=== PATIENT | female | born 1980 | race Caucasian/White ===

== ENCOUNTER 2017-04-27 22:03 | Emergency (ER) | payer BC ==
[~2017-04-27] VITALS: Ht 162.6 cm; Wt 55.5 kg
[~2017-04-27 22:03] MED LIST: ACET-1311 PO; IBUP-1050 PO; PRENTAB26 PO
[2017-04-27 22:10] VITALS: TEMP 36.8; Ht 162.6 cm; Wt 55.5 kg
[2017-04-27] MEDS ORDERED: XYLOCAINE 1%/SOD BICARB 20 ML VIAL INFIL ONE (22:30)
[2017-04-27 23:40] VITALS: BP 100/70; PULSE 87; O2SAT 98
--- NOTE | 2017-04-27 23:54 | EMERGENCY ROOM VISIT NOTE ---
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 She does report moderate bleeding from the wound, and rates her discomfort a 4 out of 10. She has not noticed any loss of function, paresthesias or numbness of the finger. The patient is [id number]. Tetanus immunization is up-to-date. Review of Systems 6 system review was performed and was negative except for pertinent positives and negatives as indicated in history of present illness Past Medical/Surgical History Medical Problems: (1) Calculus Of Kidney (2) Irritable Bowel Syndrome (3) Missed Family History Unremarkable Social History Smoking Status: Never Smoker Alcohol Use: occasionally Marital Status: Housing Status: lives with family Occupation Status: employed Current/Historical Medications No Active Prescriptions or Reported Meds Physical Exam Vital Signs Date Time Temp Pulse Resp B/P (MAP) Pulse Ox O2 Delivery O2 Flow Rate FiO2 04/27/17 23:40 87 16 100/70 98 04/27/17 22:10 36.8 93 18 123/84 97 Room Air Physical Exam CONSTITUTIONAL: Healthy and well nourished. Alert and oriented X 3 with positive affect. HEENT: Normocephalic, atraumatic. Pupils equal, round and reactive. MUSCULOSKELETAL: Examination of the right index finger shows a 1.5 cm laceration over the volar proximal phalanx region. No active bleeding noted. The patient is able to flex the finger against resistance. Capillary refill is less than 2 seconds. INTEGUMENTARY: No rash or other significant dermatologic conditions noted. NEUROLOGIC: Right index fingertip is sensory intact. Medical Decision & Procedures Procedure Laceration repair was performed under local anesthesia after receiving verbal consent from the patient. Using buffered 1% lidocaine without epinephrine, good local anesthesia was administered. The wound was then cleansed peripherally with iodine, then pressure irrigated with normal saline. Exploration of the wound does not show any obvious involvement of the underlying joint capsule, tendons, vasculature or nerves. The wound was then approximated using 5-0 nylon simple interrupted sutures. A bacitracin dressing was applied. ED Course Patient history and physical exam were performed. Nurse's notes were reviewed. Vital signs were reviewed and were normal. The patient was provided additional verbal and written wound care instructions. Ice and elevation as needed for swelling. Ibuprofen or Tylenol as needed for pain. Suture removal in 14 days, or seek reevaluation sooner for any signs of wound infection. Patient was happy with plan of care, voiced understanding of all discharge instructions, and denied any pain at the time of discharge. Medical Decision Medication Reconcilliation Current Medication List: was personally reviewed by me Blood Pressure Screening Patient's blood pressure: Normal blood pressure Impression Primary Impression: Laceration of right index finger Departure Information Dispostion Home / Self-Care Prescriptions No Active Prescriptions or Reported Meds Forms HOME CARE DOCUMENTATION FORM, IMPORTANT VISIT INFORMATION Patient Instructions My [facility] Additional Instructions Keep wound clean and dry. Do not allow any crusting or dried blood to accumulate on sutures. If this occurs, use a 1:1 solution of hydrogen peroxide/ water on a Q-tip to clean the wound. Use an antibiotic ointment for 3-4 days, then let wound dry. Suture removal in 14 days. Return sooner for any signs of infection (increasing redness, swelling, drainage). Ice and elevate for swelling and pain. Ibuprofen 600 mg and/or Tylenol 1000 mg every 6 hrs if needed for pain. Problem Qualifiers Primary Impression: Laceration of right index finger Encounter type: initial encounter Damage to nail status: without damage Foreign body presence: without foreign body Qualified Codes: S61.210A - Laceration without foreign body of right index finger without damage to nail, initial encounter
== END 2017-04-27 23:35 | disposition home or self-care (01) ==
LOC: C.EDB 22:03 → C.EDC 23:35
DX: S61.210A Laceration without foreign body of right index finger without damage to nail, initial encounter (principal); W26.8XXA Contact with other sharp object(s), not elsewhere classified, initial encounter; Z87.442 Personal history of urinary calculi; K58.9 Irritable bowel syndrome, unspecified

== ENCOUNTER 2019-11-03 21:55 | Inpatient (IN) ==
--- OUTSIDE RECORDS SUMMARY | 2019-11-03 21:58 | External Medical Summary | Continuity of Care Document ---
:1980 Author Name Malena M.DMoises Address Unavailable Unavailable , Care Team Providers Name Role Phone Unavailable Unavailable Unavailable FONSECA, N Unavailable Unavailable Unavailable Unavailable Unavailable Problems Encounter for routine gynecological examination (V72.31) (Z0 1.419) Encounter for routine gynecological examination (V72.31) (Z0 1.419) Irregular bleeding (626.4) (N92.6) Female pelvic pain (625.9) (R10.2) Allergies and Adverse Reactions Penicillins (Allergy) Sulfa Drugs (Allergy) Medications Medications not documented Procedures History of Tonsillectomy With Adenoidectomy Status: Completed History of Dilation And Curettage Status : Completed Immunizations Immunizations not documented Family History Unknown Family Member Family history of Breast Cancer (V16.3) Status: Active Comments: Family History Grandfather Family history of Colon Cancer (V16.0) Status: Active Social History - Smoking Status Tobacco smoking consumption unknown Never smoked tobacco Plan of Treatment Planned Observations Planned Goals not documented Results No Known Results Results not documented
--- OUTSIDE RECORDS SUMMARY | 2019-11-03 21:58 | External Medical Summary | Continuity of Care Document ---
:1980 Author Name Malena M.DMoises Address Unavailable Unavailable , Care Team Providers Name Role Phone Unavailable Unavailable Unavailable FONSECA, N Unavailable Unavailable Unavailable Unavailable Unavailable Problems Encounter for routine gynecological examination (V72.31) (Z0 1.419) Female pelvic pain (625.9) (R10.2) Irregular bleeding (626.4) (N92.6) Encounter for routine gynecological examination (V72.31) (Z0 1.419) Allergies and Adverse Reactions Penicillins (Allergy) Sulfa [...]
[2019-11-03] MEDS ORDERED: ACETAMINOPHEN 325 MG TAB PO STA (22:14)
[2019-11-03] MEDS ORDERED: KETOROLAC TROMETHAMINE 15 MG/ML VIAL IV STA (22:14)
[2019-11-03] MEDS ORDERED: SODIUM CHLORIDE 0.9% 1000ML 1,000 ML IV SCH (22:15)
[2019-11-03 22:39] LABS: Basophils # (auto) 0.04 K/uL (0-0.2); Basophils % (auto) 0.9 %; Hematocrit (blood only) 38.4 % (37-47); Hemoglobin 13.1 g/dL (12.0-16.0); Immature Granulocytes # (auto) 0.01 K/uL (0.00-0.02); Immature Granulocytes % (auto) 0.2 %; Lymphocytes # (auto) 0.53 K/uL (1.2-3.4); Lymphocytes % (auto) 11.6 %; Mean Corpuscular Hemoglobin 31.7 pg (25-34); Mean Corpuscular Hgb Conc 34.1 g/dL (32-36); Mean Platelet Volume 10.2 fL (7.4-10.4); Monocytes # (auto) 0.55 K/uL (0.11-0.59); Neutrophils # (auto) 3.45 K/uL (1.4-6.5); Neutrophils % (auto) 75.3 %; Platelet Count 146 K/uL (130-400); RDW Coefficient of Variation 13.2 % (11.5-14.5); RDW Standard Deviation 45.4 fL (36.4-46.3); Red Blood Count 4.13 M/uL (4.2-5.4); White Blood Count 4.58 K/uL (4.8-10.8)
[2019-11-03 22:58] LABS: Albumin Level 3.3 gm/dl (3.4-5.0); BUN Creatinine Ratio 8.5 (10-20); Calcium 8.3 mg/dl (8.5-10.1); Creatinine Clr Calc Pharmacy 82.2 ml/min; Est GFR (African American) 114.5; Est GFR (Non-African American) 98.8; Magnesium 1.4 mg/dl (1.8-2.4)
[2019-11-03 23:00] LABS: Albumin Globulin Ratio 0.9 (0.9-2); Globulin 3.9 gm/dl (2.5-4.0); Total Protein 7.2 gm/dl (6.4-8.2)
[2019-11-03] MEDS ORDERED: MAGNESIUM SULFATE / D5W 1 GM/100 ML BAG IV STA (23:02)
[2019-11-03] MEDS ORDERED: POTASSIUM CHLORIDE / WTR 10 MEQ/100 ML PLCT IV ONE (23:02)
--- NOTE | 2019-11-03 23:03 | Emergency Department Note ---
History of Present Illness General Chief complaint: Fever Stated complaint: LOWER BACK PAIN, FEVER Time Seen by Provider: 11/03/19 22:02 History of Present Illness Maximum Pain Intensity: 8 This is a 39-year-old female that presents to the emergency department via private vehicle with complaints of "lower back pain, fever". The patient states that 1 week ago she developed dysuria and then drank cranberry juice and this seemed to subside. She states that that over the past 2 to 3 days she has had lower abdominal/suprapubic discomfort and back pain. She states that the back pain is central and not necessarily left or right-sided. She notes persistent now urinary urgency and dysuria. She denies any vaginal discharge. She is in a monogamous relationship with her . She denies any cough, nausea, vomiting, close contacts that have been ill. Overall discomfort is an 8/10. No history of meningitis or encephalitis. Home Medications Home Medications Medication Instructions Recorded Confirmed Type ibuprofen [Advil] 800 mg PO Q4 PRN 11/03/19 11/03/19 History Allergies Allergy/AdvReac Type Severity Reaction Status Date / Time Penicillins Allergy Intermediate DISCOLORED Verified 11/03/19 22:51 HIVES Sulfa (Sulfonamide Allergy Intermediate DISCOLORED Verified 11/03/19 22:51 Antibiotics) HIVES Past Med/Surg History Medical History No pertinent past medical history Surgical History No pertinent past surgical history Social History Preferred Language: [place]an Communication Ability: Effective Electronic Publications Specialist Required: No Beliefs That Will Affect Care: None Current Living Situation: Spouse and Family Other Information That Helps Us Care for You: No Feels Safe at Home: Yes Safety Concerns: Feels Safe At This Time Smoking Status: Never smoker Hx Alcohol Use: Yes Alcohol type: hard liquor Hx Substance Use: No Review of Systems A total of 10 systems reviewed and were otherwise negative Physical Exam Vital Signs Vital Signs - 24 hr 11/03/19 21:57 11/03/19 22:49 11/04/19 00:31 Temperature 39.3 C H 37 C Temperature Source Oral Oral Pulse Rate 124 H Pulse Rate [Apical] 97 H 99 H Respiratory Rate 22 18 18 Respiratory Effort / Characteristics Non-Labored Spontaneous Non-Labored Respiratory Depth Normal Normal Blood Pressure 138/84 Blood Pressure [Right Arm] 133/79 102/73 Blood Pressure Mean 102 Blood Pressure Mean [Right Arm] 97 82 Blood Pressure Position Sitting Pulse Oximetry 96 95 97 Oxygen Delivery Method Room Air Room Air Sepsis Recent Fever Within 48 Hours Yes Sepsis Action Taken by Nursing Physician Notified 11/04/19 00:49 Temperature Temperature Source Pulse Rate Pulse Rate [Apical] 102 H Respiratory Rate 18 Respiratory Effort / Characteristics Non-Labored Respiratory Depth Normal Blood Pressure Blood Pressure [Right Arm] 111/72 Blood Pressure Mean Blood Pressure Mean [Right Arm] 85 Blood Pressure Position Pulse Oximetry 97 Oxygen Delivery Method Room Air Sepsis Recent Fever Within 48 Hours Sepsis Action Taken by Nursing VITAL SIGNS - Vital signs and nursing notes were reviewed. Febrile and tachycardic on arrival. GENERAL -39-year-old female appearing her stated age who is in no acute distress. Communicates well with provider and answers questions appropriately. SKIN - Without rashes. No meningeal or petechial rash. HEAD - NC/AT. EYES - PERRL with EOMI bilaterally. Sclera anicteric. EARS - No deformities of external structures noted on gross examination bilaterally. External auditory canals without discharge or otorrhea. Tympanic membranes pearly fernandes without retraction or bulging. No fluid or purulent material visualized behind the TM. Handle of malleus, umbo, cone of light, pars tensa/flaccid all easily visualized. NOSE - Midline and without cyanosis. No epistaxis or purulent drainage noted. Septum midline without deviation or septal hematoma noted. MOUTH/OROPHARYNX - Without perioral cyanosis. Buccal mucosa pink and moist and without leukoplakia. Tongue midline with equal elevation of palate bilaterally. No tonsillar hypertrophy, erythema, or exudates noted. Good dentition noted. NECK - Neck with FROM. Supple to palpation. No lymphadenopathy noted. No nuchal rigidity. No meningismus. LUNGS - Chest wall symmetric without accessory muscle use, intercostals retractions, or central cyanosis. Normal vesicular breath sounds CTA B/L. No wheezes, rales, or rhonchi appreciated. CARDIAC - RRR with S1/S2. No murmur, rubs, or gallops appreciated. ABDOMEN - Abdominal contour normal without pulsations or visible masses. BS normoactive all four quadrants. Generalized lower abdominal tenderness palpation. No palpable masses, hepatosplenomegaly, or ascites noted. EXTREMITIES - No clubbing or peripheral cyanosis. No pretibial edema present. +5/5 strength noted in UE/LE bilaterally. NEUROLOGIC - Cranial nerves II through XII grossly intact. Sensory intact to light touch throughout. PSYCH - A&Ox3 and cooperates fully with examiner. Pt is very pleasant and interacts well with examiner. Course Administered Medications Doxycycline Hyclate 100 mg/ (Dextrose) 110 mls @ 50 mls/hr IV Q12H [facility] Stop: 11/14/19 02:39 Last Admin: 11/04/19 04:31 Dose: 50 mls/hr Documented by: [id number] Ceftriaxone Sodium 2,000 mg/ (Dextrose) 50 mls @ 100 mls/hr IV Q24H [facility]; Protocol Stop: 11/14/19 02:44 Last Infusion: 11/04/19 05:04 Dose: 0 mls/hr Documented by: [id number] Admin: 11/04/19 04:31 Dose: 100 mls/hr Documented by: [id number] Sodium Chloride (Nss 1000ml) 1,000 mls @ 125 mls/hr IV .Q8H [facility] Stop: 12/04/19 02:44 Last Admin: 11/04/19 04:31 Dose: 125 mls/hr Documented by: [id number] Discontinued Medications Acetaminophen (Tylenol) 650 mg PO NOW STA Stop: 11/03/19 22:15 Last Admin: 11/03/19 22:51 Dose: 650 mg Documented by: [id number] Sodium Chloride (Nss 1000ml) 1,000 mls @ 999 mls/hr IV .Q1H1M [facility] Stop: 11/03/19 23:15 Last Infusion: 11/04/19 01:00 Dose: 0 mls/hr Documented by: [id number] Admin: 11/03/19 22:35 Dose: 999 mls/hr Documented by: [id number] Potassium Chloride (K Herbert / Wtr) 10 meq in 100 mls @ 100 mls/hr IV ONE ONE Stop: 11/04/19 00:01 Last Infusion: 11/04/19 01:28 Dose: 0 mls/hr Documented by: [id number] Admin: 11/04/19 00:25 Dose: 100 mls/hr Documented by: [id number] Magnesium Sulfate/Dextrose (Magnesium Sulfate / D5w) 1 gm in 100 mls @ 100 mls/hr IV NOW STA Stop: 11/04/19 00:01 Last Infusion: 11/04/19 01:00 Dose: 0 mls/hr Documented by: [id number] Admin: 11/03/19 23:12 Dose: 100 mls/hr Documented by: [id number] Magnesium Sulfate/Dextrose (Magnesium Sulfate / D5w) 1 gm in 100 mls @ 50 mls/hr IV ONE ONE Stop: 11/04/19 04:36 Last Infusion: 11/04/19 04:41 Dose: 0 mls/hr Documented by: [id number] Admin: 11/04/19 02:49 Dose: 50 mls/hr Documented by: [id number] Ioversol (Optiray 320 100ml) 94 ml IV ONCE PRN PRN Reason: Interaction Checking Stop: 11/07/19 23:11 Last Admin: 11/03/19 23:13 Dose: 1 ml Documented by: [id number] Ketorolac Tromethamine (Toradol) 15 mg IV NOW STA Stop: 11/03/19 22:15 Last Admin: 11/03/19 22:51 Dose: 15 mg Documented by: [id number] Potassium Chloride (Nancy Ciel Elix) 60 meq PO NOW STA Stop: 11/04/19 02:38 Last Admin: 11/04/19 02:49 Dose: 60 meq Documented by: [id number] Medical Decision Making Laboratory Data Result diagrams: 11/03/19 22:29 11/03/19 22:29 Lab Results 11/03/19 11/03/19 11/03/19 Range/Units 22:29 22:29 22:29 WBC 4.58 L (4.8-10.8) K/uL RBC 4.13 L (4.2-5.4) M/uL Hgb 13.1 (12.0-16.0) g/dL Hct 38.4 (37-47) % MCV 93.0 (80-100) fL MCH 31.7 (25-34) pg MCHC 34.1 (32-36) g/dL RDW Std Deviation 45.4 (36.4-46.3) fL RDW Coeff of Octavia 13.2 (11.5-14.5) % Plt Count 146 (130-400) K/uL MPV 10.2 (7.4-10.4) fL Immature Gran % (Auto) 0.2 % Neut % (Auto) 75.3 % Lymph % (Auto) 11.6 % Edgar % (Auto) 12.0 % Eos % (Auto) 0.0 % Baso % (Auto) 0.9 % Immature Gran # (Auto) 0.01 (0.00-0.02) K/uL Neut # (Auto) 3.45 (1.4-6.5) K/uL Lymph # (Auto) 0.53 L (1.2-3.4) K/uL Edgar # (Auto) 0.55 (0.11-0.59) K/uL Eos # (Auto) 0.00 (0-0.5) K/uL Baso # (Auto) 0.04 (0-0.2) K/uL Absolute Nucleated RBC 0.00 (0-0) K/uL Nucleated RBC % (auto) 0.0 % Sodium 133 L (136-145) mmol/L Potassium 3.0 L (3.5-5.1) mmol/L Chloride 101 (98-107) mmol/L Carbon Dioxide 23 (21-32) mmol/L Anion Gap 9.0 (3-11) BUN 7 (7-18) mg/dl Creatinine 0.76 (0.6-1.2) mg/dl Est Cr Clr Drug Dosing 82.2 ml/min Est GFR ( Amer) 114.5 Est GFR (Non-Af Amer) 98.8 BUN/Creatinine Ratio 8.5 L (10-20) Glucose 116 H (70-99) mg/dl Lactate 0.9 (0.4-2.0) mmol/L Calcium 8.3 L (8.5-10.1) mg/dl Magnesium 1.4 L (1.8-2.4) mg/dl Total Bilirubin 1.0 (0.2-1) mg/dl AST 98 H (15-37) U/L ALT 53 (12-78) U/L Alkaline Phosphatase 106 (45-117) U/L Total Protein 7.2 (6.4-8.2) gm/dl Albumin 3.3 L (3.4-5.0) gm/dl Globulin 3.9 (2.5-4.0) gm/dl Albumin/Globulin Ratio 0.9 (0.9-2) Urine Color Urine Appearance (Clear) Urine pH (4.5-7.5) Ur Specific [place] (1.000-1.030) Urine Protein (Negative) Urine Glucose (UA) (Negative) Urine Ketones (Negative) Urine Blood (Negative) Urine Nitrite (Negative) Urine Bilirubin (Negative) Urine Urobilinogen (Negative) Ur Leukocyte Esterase (Negative) Urine WBC (Auto) (0-5) /hpf Urine RBC (Auto) (0-4) /hpf U Hyaline Cast (Auto) (0-5) /lpf U Epithel Cells (Auto) (0-5) /lpf Urine Bacteria (Auto) (Negative) POC Ur Test (NEG) Adenovirus (PCR) (NotDetected) Anaplasma Smear See Comment B. pertussis DNA (PCR) (NotDetected) B.parapertussis DNA PCR (NotDetected) Lyme Disease IgG Ab (Negative) Lyme Disease IgM Ab (Negative) C. pneumoniae DNA (PCR) (NotDetected) Coronavirus OC43 (PCR) (NotDetected) Coronavirus HKU1 (PCR) (NotDetected) Coronavirus 229E (PCR) (NotDetected) COVID-19 PCR (Negative) Coronavirus NL63 (PCR) (NotDetected) Human Metapneumovir PCR (NotDetected) Influenza Type A (PCR) (NotDetected) Influenza Type B (PCR) (NotDetected) M. pneumoniae (PCR) (NotDetected) Parainfluenza 1 (PCR) (NotDetected) Parainfluenza 2 (PCR) (NotDetected) Parainfluenza 3 (PCR) (NotDetected) Parainfluenza 4 (PCR) (NotDetected) RSV (PCR) (NotDetected) Entero/Rhino (PCR) (NotDetected) 11/03/19 11/03/19 11/03/19 Range/Units 22:29 23:41 23:41 WBC (4.8-10.8) K/uL RBC (4.2-5.4) M/uL Hgb (12.0-16.0) g/dL Hct (37-47) % MCV (80-100) fL MCH (25-34) pg MCHC (32-36) g/dL RDW Std Deviation (36.4-46.3) fL RDW Coeff of Octavia (11.5-14.5) % Plt Count (130-400) K/uL MPV (7.4-10.4) fL Immature Gran % (Auto) % Neut % (Auto) % Lymph % (Auto) % Edgar % (Auto) % Eos % (Auto) % Baso % (Auto) % Immature Gran # (Auto) (0.00-0.02) K/uL Neut # (Auto) (1.4-6.5) K/uL Lymph # (Auto) (1.2-3.4) K/uL Edgar # (Auto) (0.11-0.59) K/uL Eos # (Auto) (0-0.5) K/uL Baso # (Auto) (0-0.2) K/uL Absolute Nucleated RBC (0-0) K/uL Nucleated RBC % (auto) % Sodium (136-145) mmol/L Potassium (3.5-5.1) mmol/L Chloride (98-107) mmol/L Carbon Dioxide (21-32) mmol/L Anion Gap (3-11) BUN (7-18) mg/dl Creatinine (0.6-1.2) mg/dl Est Cr Clr Drug Dosing ml/min Est GFR ( Amer) Est GFR (Non-Af Amer) BUN/Creatinine Ratio (10-20) Glucose (70-99) mg/dl Lactate (0.4-2.0) mmol/L Calcium (8.5-10.1) mg/dl Magnesium (1.8-2.4) mg/dl Total Bilirubin (0.2-1) mg/dl AST (15-37) U/L ALT (12-78) U/L Alkaline Phosphatase (45-117) U/L Total Protein (6.4-8.2) gm/dl Albumin (3.4-5.0) gm/dl Globulin (2.5-4.0) gm/dl Albumin/Globulin Ratio (0.9-2) Urine Color Yellow Urine Appearance Clear (Clear) Urine pH 6.0 (4.5-7.5) Ur Specific [place] 1.023 (1.000-1.030) Urine Protein Negative (Negative) Urine Glucose (UA) Negative (Negative) Urine Ketones 1+ H (Negative) Urine Blood 1+ H (Negative) Urine Nitrite Negative (Negative) Urine Bilirubin Negative (Negative) Urine Urobilinogen Negative (Negative) Ur Leukocyte Esterase Negative (Negative) Urine WBC (Auto) 1-5 (0-5) /hpf Urine RBC (Auto) 0-4 (0-4) /hpf U Hyaline Cast (Auto) 1-5 (0-5) /lpf U Epithel Cells (Auto) >30 H (0-5) /lpf Urine Bacteria (Auto) Negative (Negative) POC Ur Test NEG (NEG) Adenovirus (PCR) (NotDetected) Anaplasma Smear B. pertussis DNA (PCR) (NotDetected) B.parapertussis DNA PCR (NotDetected) Lyme Disease IgG Ab Negative (Negative) Lyme Disease IgM Ab Negative (Negative) C. pneumoniae DNA (PCR) (NotDetected) Coronavirus OC43 (PCR) (NotDetected) Coronavirus HKU1 (PCR) (NotDetected) Coronavirus 229E (PCR) (NotDetected) COVID-19 PCR (Negative) Coronavirus NL63 (PCR) (NotDetected) Human Metapneumovir PCR (NotDetected) Influenza Type A (PCR) (NotDetected) Influenza Type B (PCR) (NotDetected) M. pneumoniae (PCR) (NotDetected) Parainfluenza 1 (PCR) (NotDetected) Parainfluenza 2 (PCR) (NotDetected) Parainfluenza 3 (PCR) (NotDetected) Parainfluenza 4 (PCR) (NotDetected) RSV (PCR) (NotDetected) Entero/Rhino (PCR) (NotDetected) 11/04/19 11/04/19 Range/Units 01:40 01:40 WBC (4.8-10.8) K/uL RBC (4.2-5.4) M/uL Hgb (12.0-16.0) g/dL Hct (37-47) % MCV (80-100) fL MCH (25-34) pg MCHC (32-36) g/dL RDW Std Deviation (36.4-46.3) fL RDW Coeff of Octavia (11.5-14.5) % Plt Count (130-400) K/uL MPV (7.4-10.4) fL Immature Gran % (Auto) % Neut % (Auto) % Lymph % (Auto) % Edgar % (Auto) % Eos % (Auto) % Baso % (Auto) % Immature Gran # (Auto) (0.00-0.02) K/uL Neut # (Auto) (1.4-6.5) K/uL Lymph # (Auto) (1.2-3.4) K/uL Edgar # (Auto) (0.11-0.59) K/uL Eos # (Auto) (0-0.5) K/uL Baso # (Auto) (0-0.2) K/uL Absolute Nucleated RBC (0-0) K/uL Nucleated RBC % (auto) % Sodium (136-145) mmol/L Potassium (3.5-5.1) mmol/L Chloride (98-107) mmol/L Carbon Dioxide (21-32) mmol/L Anion Gap (3-11) BUN (7-18) mg/dl Creatinine (0.6-1.2) mg/dl Est Cr Clr Drug Dosing ml/min Est GFR ( Amer) Est GFR (Non-Af Amer) BUN/Creatinine Ratio (10-20) Glucose (70-99) mg/dl Lactate (0.4-2.0) mmol/L Calcium (8.5-10.1) mg/dl Magnesium (1.8-2.4) mg/dl Total Bilirubin (0.2-1) mg/dl AST (15-37) U/L ALT (12-78) U/L Alkaline Phosphatase (45-117) U/L Total Protein (6.4-8.2) gm/dl Albumin (3.4-5.0) gm/dl Globulin (2.5-4.0) gm/dl Albumin/Globulin Ratio (0.9-2) Urine Color Urine Appearance (Clear) Urine pH (4.5-7.5) Ur Specific [place] (1.000-1.030) Urine Protein (Negative) Urine Glucose (UA) (Negative) Urine Ketones (Negative) Urine Blood (Negative) Urine Nitrite (Negative) Urine Bilirubin (Negative) Urine Urobilinogen (Negative) Ur Leukocyte Esterase (Negative) Urine WBC (Auto) (0-5) /hpf Urine RBC (Auto) (0-4) /hpf U Hyaline Cast (Auto) (0-5) /lpf U Epithel Cells (Auto) (0-5) /lpf Urine Bacteria (Auto) (Negative) POC Ur Test (NEG) Adenovirus (PCR) Not Detected (NotDetected) Anaplasma Smear B. pertussis DNA (PCR) Not Detected (NotDetected) B.parapertussis DNA PCR Not Detected (NotDetected) Lyme Disease IgG Ab (Negative) Lyme Disease IgM Ab (Negative) C. pneumoniae DNA (PCR) Not Detected (NotDetected) Coronavirus OC43 (PCR) Not Detected (NotDetected) Coronavirus HKU1 (PCR) Not Detected (NotDetected) Coronavirus 229E (PCR) Not Detected (NotDetected) COVID-19 PCR NEGATIVE (Negative) Coronavirus NL63 (PCR) Not Detected (NotDetected) Human Metapneumovir PCR Not Detected (NotDetected) Influenza Type A (PCR) Not Detected (NotDetected) Influenza Type B (PCR) Not Detected (NotDetected) M. pneumoniae (PCR) Not Detected (NotDetected) Parainfluenza 1 (PCR) Not Detected (NotDetected) Parainfluenza 2 (PCR) Not Detected (NotDetected) Parainfluenza 3 (PCR) Not Detected (NotDetected) Parainfluenza 4 (PCR) Not Detected (NotDetected) RSV (PCR) Not Detected (NotDetected) Entero/Rhino (PCR) Not Detected (NotDetected) Imaging Data My Impression: Chest x-ray: No acute process. Radiologist's Impression: CT ABDOMEN & PELVIS With Contrast: Direct comparison made to a prior study of March 31, 2014. The liver, spleen, pancreas and gallbladder appear normal. Stomach, small bowel, colon appeared normal. Kidneys ureters and bladder appear normal. Uterus appears normal. Vascular structures appear normal. Impression: No acute findings Radiologist: Alex Schuster MD Study ready at 00:07 and initial results transmitted at 00:25 MDM Narrative Patient was seen and evaluated as above in room C6. Review was performed of nursing notes and vital signs. After obtaining a thorough history and physical examination the above work up was performed. She presents to us today with dy suria, urinary hesitancy, lower abdominal pain, back pain and now fever. She is tachycardic and febrile on examination and therefore work-up was focused around this. There is mild decrease in white blood cell count and red blood cell count. Mild decrease in potassium as well as magnesium. These were intravenously repeated. AST elevated at 98. Urinalysis does not suggest infection. CT scan was obtained of the abdomen and pelvis and was negative. Patient was medicated here with fluids, magnesium, potassium, Tylenol as well as Toradol. With the patient's fever of unknown origin I do believe that further evaluation and management in the inpatient setting is warranted given her tachycardic and febrile state on arrival. COVID as well as bio fire were ordered and were negative. Patient does not have any nuchal rigidity on examination. Do not believe that LP risk outweighs benefit at this time. Benefit versus risk of LP discussed and through shared decision making will refrain. Case discussed with the hospitalist. Please refer to further documentation regarding her stay. Patient amenable to staying. Case was discussed with the attending physician. An order was placed for continuous cardiac monitoring. The monitor shows a rate of 101 with sinus tachycardic rhythm. I attest that I have personally reviewed the patient medication list. GCS: 15 In the evaluation and treatment of this patient the following differential diagnoses were entertained: Anaplasmosis, Lyme disease, meningitis, encephalitis, COVID, pneumonia, pyelonephritis, pyelitis, renal abscess, UTI, PI D, appendicitis, among others Impression & Plan Fever of unknown origin, Hypomagnesemia, Hypokalemia Discharge Plan Visit Data *Final* Discharge Date/Time: 11/04/19 03:41 Chief Complaint: Fever Stated Complaint: LOWER BACK PAIN, FEVER ED Provider: Toby Guzman ED Midlevel Provider: Sharan Duran Discharge Problem: Fever of unknown origin, Hypomagnesemia, Hypokalemia Patient Disposition: Admitted As Inpatient Condition: Good Discharge Instructions Interventions: ED Discharge Assessment Last Done: 11/04/19 03:41
[2019-11-03] MEDS ORDERED: IOVERSOL 100ml IV PRN (23:12)
[2019-11-03 23:50] LABS: Appearance Urine Clear (Clear); Bacteria Urine Automated Negative (Negative); Bilirubin Urine Negative (Negative); Blood Urine 1+ (Negative); Color Urine Yellow; Epithelial Cell Urine Auto >30 /lpf (0-5); Glucose Urine UA Negative (Negative); Ketones Urine 1+ (Negative); Leukocyte Esterase Urine Negative (Negative); Nitrite Urine Negative (Negative); Protein Urine Negative (Negative); RBC Urine Automated 0-4 /hpf (0-4); Specific Gravity Urine 1.023 (1.000-1.030); Urobilinogen Urine Negative (Negative)
[2019-11-04] MEDS ORDERED: MAGNESIUM SULFATE / D5W 1 GM/100 ML BAG IV ONE (02:37)
[2019-11-04] MEDS ORDERED: POTASSIUM CHLORIDE 20 MEQ/15 ML UDC PO STA (02:37)
[2019-11-04] MEDS ORDERED: cefTRIAXone SODIUM 2,000 MG in DEXTROSE 5% 50 ML IV SCH (02:45)
[2019-11-04] MEDS ORDERED: SODIUM CHLORIDE 0.9% 1000ML 1,000 ML IV SCH (02:45)
[2019-11-04 02:57] LABS: Adenovirus PCR Not Detected (NotDetected); Bordetella parapertussis PCR Not Detected (NotDetected); Bordetella pertussis PCR Not Detected (NotDetected); Chlamydia pneumoniae PCR Not Detected (NotDetected); Coronavirus 229E PCR Not Detected (NotDetected); Coronavirus HKU1 PCR Not Detected (NotDetected); Coronavirus NL63 PCR Not Detected (NotDetected); Coronavirus OC43PCR Not Detected (NotDetected); Human Metapneumovirus PCR Not Detected (NotDetected); Influenza A PCR Not Detected (NotDetected); Influenza B PCR Not Detected (NotDetected); Mycoplasma pneumoniae PCR Not Detected (NotDetected); Parainfluenza Virus 1 PCR Not Detected (NotDetected); Parainfluenza Virus 2 PCR Not Detected (NotDetected); Parainfluenza Virus 3 PCR Not Detected (NotDetected); Parainfluenza Virus 4 PCR Not Detected (NotDetected); Respiratory Syncytial VirusPCR Not Detected (NotDetected); Rhinovirus/Enterovirus PCR Not Detected (NotDetected)
[2019-11-04 03:34] LABS: Lyme Ab IgG w/WB Rflx Negative (Negative); Lyme Ab IgM w/WB Rflx Negative (Negative)
[2019-11-04] MEDS ORDERED: NITROGLYCERIN SL 0.4 MG/TAB TAB SL PRN (04:09)
--- NOTE | 2019-11-04 04:22 | History and Physical Report ---
DATE OF ADMISSION: 11/04/2019 CHIEF COMPLAINT: Fever and back pain. HISTORY OF PRESENT ILLNESS: A 39-year-old female with no significant past medical history, who had some varicella infection long time back, who presents with fever and low back pain that started last 4 days ago, on and off, and last 24 hours she is taking ibuprofen every 4-6 hours, the fever is not coming down, and has significant pain in the lower back radiating to the groins and she has also had some burning micturition since last few days. Initially thought it could be from UTI. There is some blood in the urine, but she is also menstruating. Temperature was 104F today, she called her family doctor and advised to come to the ER for possible sepsis. There was question of pyelonephritis, but CT scan of the abdomen and pelvis unremarkable. UA was also unremarkable. Has slight leukopenia of 4.5, potassium was 3, and magnesium was 1.4. Lactate was 0.9. Rest of the labs were unremarkable. Chest x-ray was unremarkable. The patient does not have any cough, no shortness of breath, no chest pain, no loss of sense of smell or taste. Having poor appetite. Denies any diarrhea or constipation, no blood in the stools. Has headaches. No blurred visions, no earache, no runny nose, no sore throat, no dysphagia. No rash anywhere. The patient has no obvious exposure to COVID patients. The patient traveled out of the state on 10[place]07[place]2019 to drop off her son for his recruitment internship. They camped for a couple of times, last one was last weekend and prior to that a couple of weeks ago. The patient says she was not exposed to any public during the camping. Did not notice any tick bites, but says her dog has some ticks. Because of COVID pandemic, COVID PCR was ordered, which is pending. Influenza is ordered, which is pending and also biofire results are ordered. We will also order Lyme screen and anaplasmosis tests. When she came in, the patient was having temperature 39.3 and she was tachycardic. With the fluids and Tylenol and Toradol, fever has come down, tachycardia improved. Currently resting comfortably and hemodynamically stable. ALLERGIES: PENICILLIN, SULFA ANTIBIOTICS. PAST MEDICAL HISTORY: As mentioned above. PAST SURGICAL HISTORY: Colonoscopy, eardrum opening x2, arm surgery, Pap screen, tonsillectomy, adenoidectomy. MEDICATIONS: None. FAMILY HISTORY: Significant for father has asthma, uveitis, endocrine disorder, heart disorder, hypertension; mother has thyroid disorder, hypertension, diabetes; aunt has breast cancer. SOCIAL HISTORY: . No smoking. Alcohol occasional. No drug use. REVIEW OF SYSTEMS: As per HPI. Rest of the review of systems negative. PHYSICAL EXAMINATION: GENERAL: The patient is of moderate build, not in acute distress. VITAL SIGNS: T-max 39.3, pulse currently 102, blood pressure 111/72, respiratory rate 18, oxygen 97% on room air. HEENT: No pallor, no icterus. Pupils equal, round, and reactive to light. NECK: No neck masses seen, supple. CARDIOVASCULAR: S1, S2 heard, regular rate and rhythm, no murmur, no gallop. RESPIRATORY SYSTEM: Normal AP diameter. No accessory muscle use. No wheezing, no crackles. ABDOMEN: Soft, bowel sounds present. Mild lower abdominal discomfort. No guarding, no rigidity, no distention. CENTRAL NERVOUS SYSTEM: Cranial nerves II-XII grossly intact. Nonfocal. EXTREMITIES: No edema, no erythema. LABORATORY DATA: WBC 4.5, hemoglobin 13.1, hematocrit 38.4, platelets 146. Sodium 133, potassium 3, chloride 101, bicarbonate 23, BUN 7, creatinine 0.7, serum glucose 116, lactate 0.9, calcium 8.3, magnesium 1.4, total bilirubin 1, AST 98, ALT 53, alkaline phosphatase 106. Urinalysis, +1 ketones, +1 blood. IMAGING DATA: Chest x-ray, no acute findings. CT of abdomen and pelvis, preliminary report, no acute findings. ASSESSMENT AND PLAN: This is a 39-year-old female who presents with back pain and fever going on for last 4 days. 1. Fever and back pain. Meets criteria for early sepsis with fever, tachycardia, leukopenia. Currently, source is unclear. The patient traveled on 10/07/2019 to out of the [facility] and also recently had camping, but there was no close exposure to public, but because of ongoing pandemic we will check for COVID testing and other viral causes.At camping could also be exposed to some tick bites, though the patient did not notice any, but she says she noticed some ticks on the dog, so we will empirically start for tick-borne illnesses with IV doxycycline and IV Rocephin. Follow those results. Currently hemodynamically stable. Continue with intravenous fluids 125 mL per hour normal saline, Tylenol p.r.n. Monitor in the med/surg tele. 2. Electrolyte abnormalities with hypokalemia and hypomagnesemia. We will replace. Follow the repeat labs. 3. Deep venous thrombosis prophylaxis, sequential compression devices. DISPOSITION: Admit to med/surg tele. Level 1 full code. MTDD
[2019-11-04] MEDS: DOXYCYCLINE HYCLATE 100 MG in DEXTROSE 5% 100 ML IV SCH ×2 (04:31→14:23)
[2019-11-04] MEDS: ACETAMINOPHEN 325 MG TAB PO PRN ×3 (06:46→20:08)
[2019-11-04 07:10] LABS: Basophils # (auto) 0.02 K/uL (0-0.2); Basophils % (auto) 0.4 %; Eosinophils # (auto) 0.01 K/uL (0-0.5); Eosinophils % (auto) 0.2 %; Hematocrit (blood only) 34.8 % (37-47); Hemoglobin 12.1 g/dL (12.0-16.0); Lymphocytes # (auto) 0.74 K/uL (1.2-3.4); Lymphocytes % (auto) 16.1 %; Mean Corpuscular Hemoglobin 32.2 pg (25-34); Mean Corpuscular Hgb Conc 34.8 g/dL (32-36); Mean Corpuscular Volume 92.6 fL (80-100); Mean Platelet Volume 10.2 fL (7.4-10.4); Monocytes # (auto) 0.68 K/uL (0.11-0.59); Monocytes % (auto) 14.8 %; Neutrophils # (auto) 3.15 K/uL (1.4-6.5); Neutrophils % (auto) 68.5 %; Platelet Count 124 K/uL (130-400); RDW Coefficient of Variation 13.6 % (11.5-14.5); RDW Standard Deviation 45.6 fL (36.4-46.3); Red Blood Count 3.76 M/uL (4.2-5.4)
--- NOTE | 2019-11-04 07:19 | XRay Report ---
XR chest 1V portable CLINICAL HISTORY: fever COMPARISON STUDY: No previous studies for comparison. FINDINGS: The cardiac and mediastinal contours are normal. There is no evidence of focal pulmonary co nsolidation. There is no evidence of failure. No pleural effusions are visualized.[ IMPRESSION: No active disease in the chest. ACT 112: Negative or not required by law. Electronically signed by: Hilario Montejo M.D. 11/04/2019 7:17 AM
[2019-11-04 07:22] LABS: Partial Thromboplastin Ratio 1.1; Partial Thromboplastin Time 30.1 Seconds (21.0-31.0)
--- NOTE | 2019-11-04 07:30 | CT Scan Report ---
CT abd pelvis IV con only CLINICAL HISTORY: Fever, dysuria, abd/back pain COMPARISON STUDY: March 2014 TECHNIQUE: Patient was scanned in a dynamic helical fashion during intravenous administration of 94 c c of Optiray 320. A dose lowering technique was utilized adhering to the principles of ALARA. CT DOSE: 275.96 mGy.cm FINDINGS: Lower chest: The heart is normal in size and configuration, without pericardial effusion. The lung ba ses and pleural spaces are clear. Liver: The contrast-enhanced liver is normal in size, contour, and attenuation. There is no intrahepa tic biliary ductal dilatation. The hepatic veins and portal veins are patent. Gallbladder: Contracted Spleen: Spleen is borderline enlarged measuring 12.5 cm Pancreas: Unremarkable. Adrenal glands: Unremarkable. Kidneys: There is no hydronephrosis. There are clustered upper pole left renal calculi likely within a calyceal diverticulum. Proximally 6 calculi are visualized measuring 12 mm in aggregate. There is a 5 mm right renal cyst Bowel: There are no transition zones to indicate bowel obstruction. There is no evidence of acute div erticulitis. The appendix is not visualized with certainty. There are no findings to indicate acute a ppendicitis Peritoneum: There is no intraperitoneal free air or abdominal ascites. Vasculature: The abdominal aorta is normal in course and caliber. Adenopathy: None. Pelvic viscera: The bladder, and pelvic viscera are unremarkable. Skeletal structures: No destructive osseous lesions are seen. IMPRESSION: 1. No acute abdominal or pelvic findings 2. No evidence of bowel obstruction. No evidence of free air 3. Diverticulosis. No evidence of acute diverticulitis 4. Nonvisualization the appendix but no evidence of acute appendicitis 5. Left renal calculi in a presumed calyceal diverticulum ACT 112: Negative or not required by law. Electronically signed by: Hilario Montejo M.D. 11/04/2019 7:29 AM
[2019-11-04 07:36] LABS: Dohle Bodies 1+
[2019-11-04 07:46] LABS: BUN Creatinine Ratio 5.5 (10-20); Calcium 7.3 mg/dl (8.5-10.1); Creatinine Clr Calc Pharmacy 96.1 ml/min; Est GFR (African American) 129.6; Est GFR (Non-African American) 111.8; Magnesium 2.3 mg/dl (1.8-2.4); Potassium 3.5 mmol/L (3.5-5.1)
[2019-11-04] MEDS: POTASSIUM PHOSPHATE IV SCH ×2 (08:57→20:09)
[2019-11-04] MEDS: [UNRECOGNIZED DRUG - OTHER] IV SCH ×2 (08:57→20:09)
[2019-11-04] MEDS: D5W IV SCH ×2 (08:57→20:09)
[2019-11-04] MEDS ORDERED: KETOROLAC TROMETHAMINE 15 MG/ML VIAL IV ONE (09:01)
[2019-11-04] MEDS ORDERED: KETOROLAC 30 MG/ML VIAL IV PRN (14:06)
[2019-11-04] MEDS: TRAMADOL HCL 50 MG TABLET PO PRN ×2 (14:23→20:08)
[2019-11-04] MEDS: IBUPROFEN 200 MG TAB PO PRN (17:09)
[2019-11-04] MEDS: ONDANSETRON INJ 2 MG/ML 2 ML VIAL IV PRN (17:56)
--- NOTE | 2019-11-04 18:39 | Communication Note ---
Date of Service: November 04, 2019 Admitted early this morning with febrile illness. Rechecked this afternoon. Persistent frontal headache. No photophobia. No nuchal rigidity. Persistent nausea. Possible tick-borne illness. Lyme screen negative. Anaplasmosis PCR pending. Continue doxycycline.
[2019-11-04] MEDS ORDERED: PROMETHAZINE HCL 12.5 MG in SODIUM CHLORIDE 0.9% 50 ML IV STA (20:43)
[2019-11-05] MEDS: DOXYCYCLINE HYCLATE 100 MG in DEXTROSE 5% 100 ML IV SCH ×2 (04:11→14:13)
[2019-11-05 07:25] LABS: Basophils # (auto) 0.02 K/uL (0-0.2); Basophils % (auto) 0.6 %; Eosinophils # (auto) 0.05 K/uL (0-0.5); Eosinophils % (auto) 1.5 %; Hematocrit (blood only) 35.3 % (37-47); Hemoglobin 11.5 g/dL (12.0-16.0); Immature Granulocytes # (auto) 0.01 K/uL (0.00-0.02); Immature Granulocytes % (auto) 0.3 %; Lymphocytes # (auto) 0.98 K/uL (1.2-3.4); Lymphocytes % (auto) 28.6 %; Mean Corpuscular Hemoglobin 30.8 pg (25-34); Mean Corpuscular Hgb Conc 32.6 g/dL (32-36); Mean Corpuscular Volume 94.6 fL (80-100); Mean Platelet Volume 10.8 fL (7.4-10.4); Monocytes # (auto) 0.44 K/uL (0.11-0.59); Monocytes % (auto) 12.8 %; Neutrophils # (auto) 1.93 K/uL (1.4-6.5); Neutrophils % (auto) 56.2 %; Platelet Count 131 K/uL (130-400); RDW Coefficient of Variation 13.8 % (11.5-14.5); RDW Standard Deviation 47.7 fL (36.4-46.3); Red Blood Count 3.73 M/uL (4.2-5.4); White Blood Count 3.43 K/uL (4.8-10.8)
[2019-11-05] MEDS: D5W IV SCH (07:47)
[2019-11-05] MEDS: ONDANSETRON INJ 2 MG/ML 2 ML VIAL IV PRN (07:47)
[2019-11-05] MEDS: POTASSIUM PHOSPHATE IV SCH (07:47)
[2019-11-05] MEDS: [UNRECOGNIZED DRUG - OTHER] IV SCH (07:47)
[2019-11-05] MEDS: IBUPROFEN 200 MG TAB PO PRN (07:52)
[2019-11-05 08:01] LABS: Albumin Level 2.5 gm/dl (3.4-5.0); BUN Creatinine Ratio 7.6 (10-20); Bilirubin Direct 0.2 mg/dl (0-0.2); Calcium 7.8 mg/dl (8.5-10.1); Creatinine Clr Calc Pharmacy 109.6 ml/min; Est GFR (African American) 135.3; Est GFR (Non-African American) 116.8; Magnesium 2.1 mg/dl (1.8-2.4); Potassium 3.6 mmol/L (3.5-5.1)
[2019-11-05 08:05] LABS: Albumin Globulin Ratio 0.8 (0.9-2); Bilirubin,Total 0.6 mg/dl (0.2-1); Globulin 3.3 gm/dl (2.5-4.0); Total Protein 5.8 gm/dl (6.4-8.2)
--- NOTE | 2019-11-05 14:32 | Hospitalist Progress Note ---
Date of Service November 05, 2019 Assessment & Plan (1) Febrile illness: Presented with febrile illness. No sick contacts. Recent camping traveling from [place] to [place]. No known tick bites, but dog had ticks. CBC showed leukopenia. Transaminases were elevated. CT showed borderline splenomegaly. Lyme screen negative. Resp BioFire panel negative. Anaplasmosis PCR ordered and pending. Received doxycycline with improvement. Discharge on doxycycline to complete 10 day course of therapy. Recheck CBC with diff and LFT's in clinic. (2) Hypokalemia: K 3.0. Received replacement. Recheck in clinic. (3) Hypomagnesemia: Mg 1.4. Received replacement. Recheck in clinic. (4) Hypophosphatemia: Phos 1.0. Received replacement. Recheck in clinic. (5) Abnormal liver function tests: 11/03/19 11/05/19 22:29 06:56 Total Bilirubin 1.0 0.6 AST 98 H 191 H ALT 53 106 H Alkaline Phosphatase 106 79 Abnormal LFT's could be secondary to anaplasmosis (not yet confirmed). No hepatobiliary abnormalities on CT. Recheck in clinic. Further evaluation as necessary if LFT elevations worsen. (6) DVT prophylaxis: SCD's ordered. (7) Discharge planning issues: Discharge to home. Internal Medicine follow-up with Dr. Marley Antunez. Admission and Anticipated Discharge Date Admission Date: November 04, 2019 Subjective Feels much better. Temp down. Headache better. Nausea improved; ate some breakfast and lunch. Ambulating. Would like to go home. Physical Exam Constitutional: no acute distress Eyes: + anicteric sclerae Respiratory: no respiratory distress Auscultation: lungs clear to auscultation bilaterally Cardiovascular: Rate/Rhythm: regular rate and regular rhythm Vessels: no JVD Extremities: no calf tenderness and no edema Gastrointestinal (Abdomen): normal bowel sounds, soft, nontender, no hepatosplenomegaly Musculoskeletal: Head/Neck/Chest: neck supple Skin: no rashes, warm and dry Psychiatric: Orientation: alert and oriented x 3 Results & Data Results & Data ([facility]) Vital Signs (Past 12 Hours) Vital Signs Temp Pulse Pulse Resp BP Pulse Ox 11/05/19 11:09 36.6 C 73 18 108/71 96 11/05/19 07:28 66 11/05/19 07:15 36.6 C 69 18 98/63 L 98 11/05/19 04:15 36.6 C 64 16 93/61 L 98 Laboratory Results Laboratory Results - last 24 hr 11/05/19 11/05/19 06:56 06:56 WBC 3.43 L RBC 3.73 L Hgb 11.5 L Hct 35.3 L MCV 94.6 MCH 30.8 MCHC 32.6 RDW Std Deviation 47.7 H RDW Coeff of Octavia 13.8 Plt Count 131 MPV 10.8 H Immature Gran % (Auto) 0.3 Neut % (Auto) 56.2 Lymph % (Auto) 28.6 [place] % (Auto) 12.8 Eos % (Auto) 1.5 Baso % (Auto) 0.6 Immature Gran # (Auto) 0.01 Neut # (Auto) 1.93 Lymph # (Auto) 0.98 L [place] # (Auto) 0.44 Eos # (Auto) 0.05 Baso # (Auto) 0.02 Sodium 139 Potassium 3.6 Chloride 110 H Carbon Dioxide 24 Anion Gap 6.0 BUN 4 L Creatinine 0.57 L Est Cr Clr Drug Dosing 109.6 Est GFR ( Amer) 135.3 Est GFR (Non-Af Amer) 116.8 BUN/Creatinine Ratio 7.6 L Glucose 104 H Calcium 7.8 L Magnesium 2.1 Total Bilirubin 0.6 Direct Bilirubin 0.2 AST 191 H ALT 106 H Alkaline Phosphatase 79 Total Protein 5.8 L Albumin 2.5 L Globulin 3.3 Albumin/Globulin Ratio 0.8 L
--- NOTE | 2019-11-06 05:55 | Discharge Summary ---
Date of Service Date of Admission: 11/04/19 Date of Discharge: 11/05/19 Admission HPI Per Admitting Provider A 39-year-old female with no significant past medical history, who had some varicella infection long time back, who presents with fever and low back pain that started last 4 days ago, on and off, and last 24 hours she is taking ibuprofen every 4-6 hours, the fever is not coming down, and has significant pain in the lower back radiating to the groins and she has also had some burning micturition since last few days. Initially thought it could be from UTI. There is some blood in the urine, but she is also menstruating. Temperature was 104F today, she called her family doctor and advised to come to the ER for possible sepsis. There was question of pyelonephritis, but CT scan of the abdomen and pelvis unremarkable. UA was also unremarkable. Has slight leukopenia of 4.5, potassium was 3, and magnesium was 1.4. Lactate was 0.9. Rest of the labs were unremarkable. Chest x-ray was unremarkable. The patient does not have any cough, no shortness of breath, no chest pain, no loss of sense of smell or taste. Having poor appetite. Denies any diarrhea or constipation, no blood in the stools. Has headaches. No blurred visions, no earache, no runny nose, no sore throat, no dysphagia. No rash anywhere. The patient has no obvious exposure to COVID patients. 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 They camped for a couple of times, last one was last weekend and prior to that a couple of weeks ago. The patient says she was not exposed to any public during the camping. Did not notice any tick bites, but says her dog has some ticks. Because of COVID pandemic, COVID PCR was ordered, which is pending. Influenza is ordered, which is pending and also biofire results are ordered. We will also order Lyme screen and anaplasmosis tests. When she came in, the patient was having temperature 39.3 and she was tachycardic. With the fluids and Tylenol and Toradol, fever has come down, tachycardia improved. Currently resting comfortably and hemodynamically stable. Principal Diagnosis febrile illness, etiology not determined- possible tick-borne disease hypokalemia hypomagnesemia hypophosphatemia abnormal LFT's Discharge Data Allergies Allergy/AdvReac Type Severity Reaction Status Date / Time Penicillins Allergy Intermediate DISCOLORED Verified 11/03/19 22:51 HIVES Sulfa (Sulfonamide Allergy Intermediate DISCOLORED Verified 11/03/19 22:51 Antibiotics) HIVES Consultations 11/04/19 01:33 ED Decision to Admit Stat Ordered Studies 11/03/19 22:13 CT abd pelvis IV con only Urgent Hospital Course (1) Febrile illness: Presented with febrile illness. No sick contacts. Recent camping traveling from [place] to [place]. No known tick bites, but dog had ticks. CBC showed leukopenia. Transaminases were elevated. CT showed borderline splenomegaly. Lyme screen negative. Resp BioFire panel negative. Anaplasmosis PCR ordered and pending. Received doxycycline with improvement. Discharge on doxycycline to complete 10 day course of therapy. Recheck CBC with diff and LFT's in clinic. (2) Hypokalemia: K 3.0. Received replacement. Recheck in clinic. (3) Hypomagnesemia: Mg 1.4. Received replacement. Recheck in clinic. (4) Hypophosphatemia: Phos 1.0. Received replacement. Recheck in clinic. (5) Abnormal liver function tests: 11/03/19 11/05/19 22:29 06:56 Total Bilirubin 1.0 0.6 AST 98 H 191 H ALT 53 106 H Alkaline Phosphatase 106 79 Abnormal LFT's could be secondary to anaplasmosis (not yet confirmed). No hepatobiliary abnormalities on CT. Recheck in clinic. Further evaluation as necessary if LFT elevations worsen. (6) DVT prophylaxis: SCD's ordered. (7) Discharge planning issues: Discharge to home. Internal Medicine follow-up with Dr. Marley Antunez. Total Time Total Time Spent Total Time Spent (In Minutes): 30 Discharge Plan Discharge Items Patient Disposition: Home - Self-Care Reason For Visit: fever Discharge Diagnosis: fever, cause uncertain Condition on Discharge: Good Activity: Resume your previous activity Non-emergency contact: Primary Care Provider and Hospitalist Call non-emergency contact if: you have any medication questions and your symptoms worsen Follow-up/Referrals: Marley Antunez MD [Primary Care Provider] - (11/07/2019 2:00 PM Marley Antunez MD General Internal Medicine [facility] ) Diet: Regular Addtl Attending Provider Instructions: MEDICATION CHANGES: Take doxycycline 100 mg twice a day until gone. (You received 2 doses in the hospital on Monday, so next dose should be Monday morning.) Avoid excessive sun exposure while taking antibiotic. Take ondansetron (Zofran) 4 mg dissolving tablet, 1 pill every 6 hours as needed for nausea. Antibiotics can cause diarrhea. Probiotics, including yogurt, might help. Stools should be tested if diarrhea frequent or severe. SUMMARY OF TEST RESULTS: Potassium level was low. Phosphorus level was low. White blood count was low. Platelet count was low. Please ask Dr. Antunez to check follow-up labs in the office. Screening test for Lyme disease was negative. Testing for several other types of infection (influenza, adenovirus, rhinovirus, and others) was negative. Urine did not show any infection. Blood cultures did not show any bacterial infection. Chest x-ray did not show any pneumonia. CT scan did not show anything dramatic. You have diverticulosis of the colon. Important to eat healthy / high fiber diet. There were some kidney stones, but no sign of blockage. Spleen was borderline enlarged, which can be seen with some infections. PENDING TEST RESULTS: Blood test for anaplasmosis. Call me for results if you don't hear anything by Friday 11/10. OTHER INSTRUCTIONS: Drink plenty of fluids. Seek medical attention if you have: * temperature above 101 * chest pain or trouble breathing * abdominal pain, nausea, vomiting * diarrhea, dark stools or bloody stools * any unanswered questions or concerns Call 911 if symptoms are severe. Please take good care of yourself. Call if you have any questions or problems. You can reach a [facility] hospitalist on duty at [facility] 24 hours a day by calling [phone]. My cell # is [phone]. Pending Studies at Discharge: Yes (blood test for anaplasmosis) Stand-Alone Forms: My [facility], Smoking Cessation Medications and DC Order Prescriptions: New doxycycline hyclate 100 mg capsule 100 mg PO BID 8 Days Qty: 16 RF: 0 ondansetron 4 mg tablet,disintegrating 4 mg PO Q6H PRN (Reason: nausea and vomiting) Qty: 4 RF: 1 Continued ibuprofen [Advil] 200 mg Tablet 800 mg PO Q4 PRN (Reason: Pain) RF: 0 Discharge Orders: Discharge Order (Routine); Ordered 11/05/19 Ordered By: Wu Claros Admission Data Admit Date/Time: 11/04/19 02:37 Attending Provider: Wu Claros Admit Provider: Calvin Sanchez Primary Care Provider: Marley Antunez Other Providers: Calvin Sanchez Other Interventions: Discharge Summary Assessment (RN) Last Done: 11/05/19 14:36 DC Date/Time DO NOT enter until pt leaves facility: 11/05/19 16:30
== END 2019-11-05 16:30 | disposition home or self-care (01) | DRG 866 ==
LOC: ED 21:55 → 2N 11-04 02:37